=== PATIENT | female | born 1965 | race Caucasian/White ===

== ENCOUNTER 2016-10-20 10:11 | Outpatient (RCR) | payer BC ==
[2016-10-20 10:31] LABS: BASOPHILS # (AUTO) 0.1 10^3/uL (0.0-0.1); BASOPHILS % (AUTO) 1 % (0-10); EOSINOPHILS # (AUTO) 0.1 10^3/uL (0.0-0.3); EOSINOPHILS % (AUTO) 1 % (0-10); LYMPHOCYTES # (AUTO) 4.2 X 10^3 (1.0-4.0); LYMPHOCYTES % (AUTO) 35 % (12-44); MEAN CORPUSCULAR HEMOGLOBIN 31 PG (25-34); MEAN CORPUSCULAR HGB CONC 34 G/DL (32-36); MEAN CORPUSCULAR VOLUME 91 FL (80-99); MEAN PLATELET VOLUME 10.5 FL (7.4-10.4); MONOCYTES # (AUTO) 0.8 X 10^3 (0.0-1.0); MONOCYTES % (AUTO) 7 % (0-12); NEUTROPHILS # (AUTO) 6.8 X 10^3 (1.8-7.8); NEUTROPHILS % (AUTO) 56 % (42-75); PLATELET COUNT 264 10^3/uL (130-400); RED BLOOD COUNT 5.25 10^6/uL (4.35-5.85); RED CELL DISTRIBUTION WIDTH 12.9 % (10.0-14.5); WHITE BLOOD COUNT 12.1 10^3/uL (4.3-11.0)
[2016-10-20 10:50] LABS: ALANINE AMINOTRANSFERASE 24 U/L (0-55); ALBUMIN 4.4 G/DL (3.2-4.5); ANION GAP 11 MMOL/L (5-14); ASPARTATE AMINO TRANSFERASE 17 U/L (5-34); BILIRUBIN,TOTAL 0.4 MG/DL (0.1-1.0); BLOOD UREA NITROGEN 9 MG/DL (7-18); BUN/CREATININE RATIO 10; CALCIUM 9.4 MG/DL (8.5-10.1); CARBON DIOXIDE 22 MMOL/L (21-32); CHLORIDE 108 MMOL/L (98-107); CREATININE SERUM 0.94 MG/DL (0.60-1.30); GFR ESTIMATED > 60; GLUCOSE 96 MG/DL (70-105); LACTATE DEHYDROGENASE 230 U/L (125-220); SODIUM 141 MMOL/L (135-145); TOTAL PROTEIN 6.9 G/DL (6.4-8.2)
== END 2017-01-18 | disposition home or self-care (01) ==
LOC: ONC 10:11
PROVIDERS: ATTEND Internal Medicine Hematology & Oncology
DX: D72.829 Elevated white blood cell count, unspecified (principal); F17.210 Nicotine dependence, cigarettes, uncomplicated; M19.90 Unspecified osteoarthritis, unspecified site; G43.909 Migraine, unspecified, not intractable, without status migrainosus
CPT/HCPCS: 36415; 80053; 82232; 83615; 85025; 99213

== ENCOUNTER → 2016-11-03 | Outpatient (CLI) | payer BC ==
[~2016-11-03] MED LIST: CATHETER FLUSH 10 ML SYR IV PRN; IOHEXOL 350 MG/ML 100 ML (OMNIPAQUE 350) VIAL IV ONE; NS 100 ML (IVPB) BAG IV ONE
--- OUTSIDE RECORDS SUMMARY | 2016-11-03 09:45 | XMS REPORT | Continuity of Care Document ---
Author Author [facility] Organization [facility] Address Unknown Phone Unavailable Allergies Active Description Code Type Severity Reaction Onset Reported/Identified Relationship to Patient Clinical Status Yes No Allergy Information Available [id number] Drug Allergy Unknown N/A 08/20/2015 Medications Problems Date Dx Coded Attending Type Code Diagnosis Diagnosed By 08/20/2015 Ot 789.00 08/20/2015 CHARU SANCHEZ, KENYA Gutierrez Ot D72.829 08/20/2015 CHARU SANCHEZ, KENYA Gutierrez Ot F17.200 08/20/2015 CHARU SANCHEZ, KENYA Brenda Ot M19.90 08/27/2015 CHARU SANCHEZ, KENYA Brenda Ot R05 08/27/2015 CHARU SANCHEZ, KENYA Gutierrez Ot Z72.0 09/01/2015 CHARU SANCHEZ, KENYA K Ot R05 09/01/2015 CHARU SANCHEZ, KENYA K Ot Z72.0 09/09/2015 CHARU SANCHEZ, KENYA Gutierrez Ot D72.829 09/09/2015 CHARU SANCHEZ, KENYA Gutierrez Ot F17.200 09/09/2015 CHARU SANCHEZ, KENYA Gutierrez Ot M19.90 10/06/2015 CHARU SANCHEZ, KENYA Gutierrez Ot D72.829 10/06/2015 CHARU SANCHEZ, KENYA Gutierrez Ot F17.200 10/06/2015 CHARU SANCHEZ, KENYA Gutierrez Ot M19.90 10/22/2015 Ot 789.00 10/22/2015 CHARU SANCHEZ, KENYA Gutierrez Ot D72.829 10/22/2015 CHARU SANCHEZ, KENYA K Ot F17.200 10/22/2015 CHARU SANCHEZ, KENYA Gutierrez Ot M19.90 10/22/2015 CHARU SANCHEZ, KENYA Gutierrez Ot R05 10/22/2015 CHARU SANCHEZ, KENYA Gutierrez Ot Z72.0 10/31/2015 CHARU SANCHEZ, KENYA Gutierrez Ot D72.829 10/31/2015 CHARU SANCHEZ, KENYA Gutierrez Ot F17.200 10/31/2015 CHARU SANCHEZ, KENYA K Ot M19.90 11/04/2015 FAUSTO SHETTY DO Ot R10.13 10/19/2016 CHARU SANCHEZ, KENYA Gutierrez Ot D72.829 ELEVATED WHITE BLOOD CELL COUNT, UNSPECI 10/19/2016 KENYA BOX MD Ot F17.200 NICOTINE DEPENDENCE, UNSPECIFIED, UNCOMP 10/19/2016 CHARU SANCHEZ, KENYA Gutierrez Ot M19.90 UNSPECIFIED OSTEOARTHRITIS, UNSPECIFIED 10/23/2016 KENYA BOX MD Ot D72.829 ELEVATED WHITE BLOOD CELL COUNT, UNSPECI 10/23/2016 KENYA BOX MD Ot F17.200 NICOTINE DEPENDENCE, UNSPECIFIED, UNCOMP 10/23/2016 KENYA BOX MD Ot M19.90 UNSPECIFIED OSTEOARTHRITIS, UNSPECIFIED Procedures Results Encounters ACCT No. Visit Date/Time Discharge Status Pt. Type Provider Facility Loc./Unit Complaint [id number] 08/20/2015 09:27:00 2014 23:59:59 CLS Outpatient KENYA BOX MD [facility] RAD [id number] 10/20/2016 10:11:00 ACT Outpatient KENYA BOX MD [facility] ONC [id number] 10/22/2015 11:34:00 ACT Outpatient FAUSTO SHETTY DO [facility] CARD [id number] 10/08/2015 10:14:00 ACT Outpatient KENYA BOX MD [facility] ONC [id number] 02/29/2012 11:27:00 Document Registration
--- NOTE | 2016-11-03 10:55 | Diagnostic Imaging Report ---
PROCEDURE: CT chest with contrast only. TECHNIQUE: Multiple contiguous axial images were obtained through the chest after administration of intravenous contrast. INDICATION: Cough. History of smoking. Hilar adenopathy seen on 08/20/2015 exam. 75 mL of Omnipaque 350 is administered intravenously. FINDINGS: Mild upper lobe centrilobular emphysema changes are seen bilaterally. There is mild atelectasis in the dependent regions of the lower lobes bilaterally. There is no significant consolidation, mass or suspicious nodule. The previously seen lymphadenopathy in the right hilum is less prominent on the current exam with no significant lymph node enlargement seen in the vaughn, the mediastinum or in the axilla bilaterally. The thoracic aorta is normal in caliber. The heart size is normal. No pericardial or pleural effusion. Sections of the upper abdomen and the osseous structures appear grossly unremarkable. IMPRESSION: Mild upper lobe predominant emphysema. Dictated by: Dictated on workstation # [id number]
== END ==
LOC: RAD 09:42
PROVIDERS: ATTEND Internal Medicine Hematology & Oncology
DX: R05 Cough (principal); Z87.891 Personal history of nicotine dependence; J43.2 Centrilobular emphysema
CPT/HCPCS: 71260

== ENCOUNTER 2017-12-28 10:38 | Outpatient (RCR) | payer BC | END 2018-03-28 | disposition home or self-care (01) | LOC: ONC 10:38 | PROVIDERS: ATTEND Internal Medicine Hematology & Oncology | DX: D72.829 Elevated white blood cell count, unspecified (principal); F17.210 Nicotine dependence, cigarettes, uncomplicated; R21 Rash and other nonspecific skin eruption; Z79.899 Other long term (current) drug therapy | CPT/HCPCS: 99214 ==